=== PATIENT | female | born 1990 | race Caucasian/White ===

== ENCOUNTER 2020-08-31 12:15 | Emergency (ER) | payer MEDICAID, OTHER ==
[~2020-08-31] VITALS: Ht 165.1 cm; Wt 59.4 kg
[2020-08-31 12:27] VITALS: BP 129/76
[2020-08-31] MEDS ORDERED: GENT5DRO4 EACHEYE (12:31)
[2020-08-31] MEDS ORDERED: METH4TAB3 PO (12:32)
--- NOTE | 2020-08-31 12:41 | NUR ---
Patient discharged to home in stable condition. Written and verbal after care instructions given. Patient verbalizes understanding of instruction.
== END 2020-08-31 12:42 | disposition home or self-care (01) ==
LOC: ER 12:22
DX: H01.006 Unspecified blepharitis left eye, unspecified eyelid (principal); H01.003 Unspecified blepharitis right eye, unspecified eyelid

== ENCOUNTER 2023-03-08 15:05 | Emergency (ER) | payer MEDICAID, OTHER ==
[~2023-03-08] VITALS: Ht 154.9 cm; Wt 59.4 kg
[~2023-03-08 15:05] MED LIST: GENT5DRO4 EACHEYE; METH4TAB3 PO
[2023-03-08 15:18] VITALS: BP 128/77; TEMP 98.4; O2SAT 100
[2023-03-08] MEDS ORDERED: KETOROLAC TROMETHAMINE 15 MG/ML VIAL IM ONE (17:30)
[2023-03-08] MEDS ORDERED: IBUP-1957 PO (17:33)
[2023-03-08] MEDS ORDERED: KETOROLAC TROMETHAMINE 15 MG/ML VIAL ONE (17:56)
== END 2023-03-08 18:05 | disposition home or self-care (01) ==
LOC: ER 15:05
DX: K08.89 Other specified disorders of teeth and supporting structures (principal); Z60.2 Problems related to living alone
CPT/HCPCS: 99285; 96372; J1885

== ENCOUNTER 2023-05-05 09:59 | Emergency (ER) | payer MEDICAID ==
[~2023-05-05] VITALS: Ht 154.9 cm; Wt 68.0 kg
[~2023-05-05 09:59] MED LIST changes: +IBUP-1957 PO
[2023-05-05 10:22] VITALS: BP 100/69; TEMP 98
[2023-05-05 10:30] VITALS: O2SAT 96
[2023-05-05] MEDS ORDERED: IBUPROFEN 600 MG TABLET ONE (10:52)
[2023-05-05] MEDS ORDERED: CEPHALEXIN MONOHYDRATE 500 MG CAPSULE PO ONE (10:52)
[2023-05-05] MEDS: CEPHALEXIN MONOHYDRATE 500 MG CAPSULE PO ONE (10:54)
[2023-05-05] MEDS: IBUPROFEN 600 MG TABLET PO ONE (10:55)
[2023-05-05] MEDS ORDERED: CEPH500C2 PO (11:09)
== END 2023-05-05 11:23 | disposition home or self-care (01) ==
LOC: ER 10:11
DX: L03.012 Cellulitis of left finger (principal); Z60.2 Problems related to living alone

== ENCOUNTER 2023-06-11 09:04 | Emergency (ER) | payer MEDICAID, OTHER ==
[~2023-06-11] VITALS: Ht 157.5 cm; Wt 68.5 kg
[~2023-06-11 09:04] MED LIST changes: +CEPH500C2 PO
[2023-06-11 10:09] LABS: BASOPHILS % (AUTO) 0.5 % (0.0-2.0); EOSINOPHILS # (AUTO) 0.3 K/uL (0.0-0.7); EOSINOPHILS % (AUTO) 3.4 % (0.0-6.0); HEMATOCRIT 29 % (33-45); HEMOGLOBIN 9.2 g/dL (11.5-14.8); LYMPHOCYTES # (AUTO) 2.1 K/uL (0.8-4.8); LYMPHOCYTES % (AUTO) 27.6 % (20.0-44.0); MEAN CORPUSCULAR HEMOGLOBIN 21 PG (26.0-33.0); MEAN CORPUSCULAR HGB CONC 32 g/dl (31.0-36.0); MEAN CORPUSCULAR VOLUME 66 fL (82-100); MONOCYTES # (AUTO) 0.5 K/uL (0.1-1.30); MONOCYTES % (AUTO) 6.2 % (2.0-12.0); NEUTROPHILS # (AUTO) 4.8 K/uL (1.8-8.9); NEUTROPHILS % (AUTO) 62.3 % (43.0-81.0); PLATELET COUNT (AUTO) 505 K/uL (150-450); RED BLOOD CELL COUNT(AUTO) 4.41 MIL/uL (4.0-5.2); RED CELL DISTRIBUTION WIDTH 19.8 % (11.5-15.0); WHITE BLOOD COUNT (AUTO) 7.8 K/uL (4.3-11.0)
[2023-06-11 10:19] LABS: CALCIUM, SERUM 9.3 mg/dL (8.5-10.1); CARBON DIOXIDE 23 mmol/L (21-32); CHLORIDE 104 mmol/L (98-107); CREATININE 0.6 mg/dL (0.6-1.3); GLUCOSE 93 mg/dL (74-106); POTASSIUM 3.8 mmol/L (3.5-5.1); SODIUM SERUM 139 mmol/L (136-145); UREA NITROGEN, BLOOD 18 mg/dL (7-18)
[2023-06-11] MEDS ORDERED: IBUP-1955 PO (11:44)
[2023-06-11] MEDS ORDERED: KETOROLAC TROMETHAMINE 15 MG/ML VIAL ONE (11:52)
[2023-06-11] MEDS: KETOROLAC TROMETHAMINE 15 MG/ML VIAL IV ONE (11:58)
[2023-06-11 12:08] VITALS: BP 138/80; TEMP 98.4; O2SAT 100
== END 2023-06-11 12:10 | disposition home or self-care (01) ==
LOC: ER 09:09
DX: R07.81 Pleurodynia (principal); R07.89 Other chest pain
CPT/HCPCS: 99285; 96374; 71045; 93005 ×2; 85025; 80048; 36415; 84484; J1885